=== PATIENT | female | born 1965 | race Caucasian/White ===

== ENCOUNTER 2017-07-19 14:41 | Emergency (ER) | payer MEDICAID ==
[~2017-07-19] VITALS: Ht 157.5 cm; Wt 67.6 kg
[2017-07-19 14:47] VITALS: Ht 157.5 cm; Wt 67.6 kg
[2017-07-19 15:23] VITALS: BP 130/57
== END 2017-07-19 15:23 | disposition home or self-care (01) ==
LOC: ED 14:41
DX: R21 Rash and other nonspecific skin eruption (principal)

== ENCOUNTER 2017-08-18 22:07 | Emergency (ER) | payer MEDICAID ==
[~2017-08-18] VITALS: Ht 152.4 cm; Wt 68.0 kg
[2017-08-18 22:22] VITALS: Ht 152.4 cm; Wt 68.0 kg
[2017-08-19 03:57] VITALS: BP 140/94
== END 2017-08-19 03:57 | disposition home or self-care (01) ==
LOC: ED 22:07
DX: R51 Headache (principal); R11.0 Nausea; H53.149 Visual discomfort, unspecified
CPT/HCPCS: J1885; J2405

== ENCOUNTER 2017-09-09 20:08 | Emergency (ER) | payer MEDICAID ==
[~2017-09-09] VITALS: Ht 152.4 cm; Wt 69.4 kg
[2017-09-09 20:21] VITALS: BP 161/92; Ht 152.4 cm; Wt 69.4 kg
== END 2017-09-09 21:05 | disposition home or self-care (01) ==
LOC: ED 20:08
DX: R21 Rash and other nonspecific skin eruption (principal); L29.9 Pruritus, unspecified